=== PATIENT | female | born 1950 | race Caucasian/White ===

== ENCOUNTER 2018-11-23 16:31 | Emergency (ER) | payer OTHER ==
[2018-11-23 16:41] VITALS: BP 111/44; PULSE 70; TEMP 98.3; BMI 26.6
--- NOTE | 2018-11-23 16:42 | PDOC ---
Rapid Medical Evaluation Medical Evaluation: I have performed a brief in-person evaluation of this patient. The patient presents with a chief complaint of: Hx of venous stasis and RLE venous stasis ulcers x 2 weeks; also with ?urticaria BUE x 3 days; patient is on coumadin due to heart valve replacement; denies fever Pertinent physical exam findings: No rash noted on BUE, R heel is wrapped by patient's daughter I have ordered the following: Labs, xray The patient will proceed to the ED for further evaluation. 11/23/18 16:37
--- NOTE | 2018-11-23 17:28 | PDOC ---
History of Present Illness - General Chief Complaint: Wound Stated Complaint: ULCER ON RT LEG & RASH Time Seen by Provider: 11/23/18 16:37 Past History - Past Medical History Allergies/Adverse Reactions: Allergies Allergy/AdvReac Type Severity Reaction Status Date / Time No Known Allergies Allergy Verified 11/23/18 16:41 Home Medications: Ambulatory Orders hydrOXYzine HCL [Atarax -] 25 mg PO TID #21 tablet 11/23/18 Asthma: Yes Cardiac Disorders: (MECHANICAL VALVES) COPD: No Other medical history: VENOUS STASIS - Surgical History Cardiac Surgery: (VALAVE REPLACEMENTS) - Suicide/Smoking/Psychosocial Hx Smoking History: Never smoked Hx Alcohol Use: No Drug/Substance Use Hx: No *Physical Exam - Vital Signs Last Vital Signs Temp Pulse Resp BP Pulse Ox 98.3 F 70 14 111/44 L 99 11/23/18 16:37 11/23/18 16:37 11/23/18 16:37 11/23/18 16:37 11/23/18 16:37 ED Treatment Course - LABORATORY CBC & Chemistry Diagram: 11/23/18 17:09 11/23/18 17:09 Medical Decision Making - Medical Decision Making 11/23/18 17:27 HPI 68 year old woman with a history of mechanical mitral and aortic valve (on coumadin), HLD venous stasis of the legs, prior L leg venous stripping who presents with 7 days of ulceration on the R lateral ankle and 5 days of itching and redness on the bilateral arms and hands. The patient has a wound care appointment on Monday and has been using benadryl and aquaphor for the itching w / moderate relief. The daughter was concerned as the patient's itching was getting worse. The patient reports that in the past she had ulceration around the ankles that was also associated with arm itching and rash that resolved when the ulcer healed. PMHX: as in HPI PSHX: as in HPI Meds: coumadin, metoprolol, crestor, digoxin ROS GENERAL/CONSTITUTIONAL: No fever or chills. No weakness. HEAD, EYES, EARS, NOSE AND THROAT: No change in vision. No ear pain or discharge. No sore throat. CARDIOVASCULAR: No chest pain or shortness of breath RESPIRATORY: No cough, wheezing, or hemoptysis. GASTROINTESTINAL: No nausea, vomiting, diarrhea or constipation. GENITOURINARY: No dysuria, frequency, or change in urination. MUSCULOSKELETAL: No joint or muscle swelling or pain. No neck or back pain. SKIN: See HPI PE GENERAL: Awake, alert, and fully oriented, in no acute distress HEAD: No signs of trauma, normocephalic, atraumatic EYES: EOMI, sclera anicteric, conjunctiva clear ENT: oropharynx clear without exudates. Moist mucosa NECK: Normal ROM, supple LUNGS: No distress, speaks full sentences, clear to auscultation bilaterally HEART: Regular rate and rhythm, normal S1 and S2, + harsh holosystolic murmur, rubs or gallops, peripheral pulses normal and equal bilaterally. ABDOMEN: Soft, nontender, normoactive bowel sounds. No guarding, no rebound. No masses EXTREMITIES : + R lateral ankle with approx 5cm diameter stage 1 ulcer with 1cm stage 2 ulceration, wound weeping without purulence or erythema, palpable pulses NEUROLOGICAL: Cranial nerves II through XII grossly intact. Normal speech, normal gait, no focal sensorimotor deficits SKIN: Warm, Dry, normal turgor, no rashes or lesions noted GENITAL: uncircumcised male, vertical lie of testes, no inguinal lymphadenopathy , nontenderness to epididymal palpation, no erythema, lesions or ulcers MDM 68 year old woman with a history of mechanical mitral and aortic valve (on coumadin), HLD venous stasis of the legs, prior L leg venous stripping who presents with 7 days of ulceration on the R lateral ankle and 5 days of itching and redness on the bilateral arms and hands. DDX including but not limited to: r/o cellulitis vs osteomyelitis W/U: - cbc, cmp, XR R ankle TX: - atarax ED Course: R ankle XR: without obvious fracture or deformity labwork unremakable Patient stable for discharge. Informed of all lab and imaging results. Given follow up instructions and strict return precautions. Patient expressed understanding and agree to plan. Sharmila Busch, PGY2 Emergency Medicine *DC/Admit/Observation/Transfer Diagnosis at time of Disposition: Ulcer, Rash - Discharge Dispostion Disposition: HOME Condition at time of disposition: Fair Decision to Admit order: No - Prescriptions Prescriptions: hydrOXYzine HCL [Atarax -] 25 mg PO TID #21 tablet - Referrals Referrals: Duane,Gladys, MD [Primary Care Provider] - - Patient Instructions Printed Discharge Instructions: DI for Skin Lesion Removal Additional Instructions: You were seen in the ED for complaints of wound ulcer and itching rash on the arms. In the ED you were evaluated with labwork and imaging. Your results were unremarkable. There does not appear to be an acute need for immediate hospitalization. You are advised to follow up with your Primary Care Physician within 1 week. You were given a prescription for Atarax to be taken as prescribed. Return to the ED immediately if you experience worsening itching, worsening ulceration, pus drainage, redness, or fevers. - Post Discharge Activity
[2018-11-23 17:35] LABS: EOS % 6.3 % (0-4.5); HEMATOCRIT 35.8 % (32.4-45.2); HEMOGLOBIN 12.1 GM/dL (10.7-15.3); MCH 31.9 pg (25.7-33.7); MEAN PLT VOLUME 9.1 fl (7.5-11.1); MONO % 11.3 % (3.8-10.2); NEUT % 54.4 % (42.8-82.8); PLATELET COUNT 277 K/MM3 (134-434); RDW 13.1 % (11.6-15.6); WHITE BLOOD COUNT 6.2 K/mm3 (4.0-10.0)
[2018-11-23] MEDS ORDERED: diphenhydrAMINE HCL 25 MG CAPSULE (FP) PO ONE (17:58)
[2018-11-23 18:01] LABS: BLOOD UREA NITROGEN 18.6 mg/dL (7-18); POTASSIUM 5.3 mmol/L (3.5-5.1)
[2018-11-23] MEDS ORDERED: hydrOXYzine HCL 25 MG TABLET (FP) PO ONE (18:07)
--- NOTE | 2018-11-23 19:20 | PDOC ---
Documentation entered by Rimma Delgado SCRIBE, acting as scribe for Wallace York MD. Wallace York MD: This documentation has been prepared by the Sandy alaniz Adrianna, SCRIBE, under my direction and personally reviewed by me in its entirety. I confirm that the documentation accurately reflects all work, treatment, procedures, and medical decision making performed by me. Attending Attestation - Resident Resident Name: Sharmila Busch - HPI HPI: The patient is a 68 year old female, with a significant PMH of mechanical mitral and aortic valve, HLD venous stasis of bilateral lower extremities, and prior left lower extremity venous stripping, who presents to the ED for evaluation of ulceration of the right ankle for 7 days, and itching/erythema of bilateral upper extremities for 5 days. Patient presents with ulceration to the lateral aspect of the right ankle, which she notes has occurred in the past. She also reports associated redness and itching of bilateral arms and hands, which she confirms also developed previously when the ulcer presented. Patient has been using benadryl and aquaphor for her bilateral upper extremity itching, with moderate relief. She notes the itching and redness had resolved in the past once the ulcer healed. Patient reports having a wound care appointment in 3 days. Allergies: NKA, NKDA Surgical History: mechanical mitral and aortic valve replacements Social History: Denies EtOH, tobacco, or illicit drug use PCP: Dr. Zepeda - Physicial Exam PE: 11/23/18 19:18 supine in stretcher in nad rrr s1 s2 no mrg ctab soft nt nd multiple excoriation, urticarial rash noted on arms bilaterally worst overlying triceps/elbows no excoriations erythema or lesions noted on dorsum of hand or interdigital webbing 10cm x 10cm ulceration of skin noted on dorsum of the R ankle no purulent drainage, warmth or surrounding erythema noted - Medical Decision Making 11/23/18 19:19 Wound does not appear infected pt with wound care follow up rash of unclear etiology may represent allergic reaction atarax prn itching return precautions f/u pmd
== END 2018-11-23 19:54 | disposition home or self-care (01) ==
LOC: JER 16:31
DX: L97.311 Non-pressure chronic ulcer of right ankle limited to breakdown of skin (principal); L50.9 Urticaria, unspecified; E78.5 Hyperlipidemia, unspecified; Z95.4 Presence of other heart-valve replacement; Z79.01 Long term (current) use of anticoagulants
CPT/HCPCS: 36415; 73610-TC-RT-FY; 73630-TC-RT-FY; 80048; 85025; 99282-25

== ENCOUNTER 2019-01-02 09:11 | Inpatient (IN) | payer OTHER ==
[2019-01-02] MEDS: SODIUM CHLORIDE 1,000 ML IV SCH ×2 (10:07→23:46)
[2019-01-02 10:28] LABS: BASO % 0.5 % (0-2.0); EOS % 3.3 % (0-4.5); HEMATOCRIT 38.6 % (32.4-45.2); LYMPH % 7.4 % (8-40); MCH 31.6 pg (25.7-33.7); MCHC 33.6 g/dl (32.0-36.0); MEAN CELL VOLUME 94.1 fl (80-96); MEAN PLT VOLUME 8.6 fl (7.5-11.1); MONO % 6.7 % (3.8-10.2); NEUT % 82.1 % (42.8-82.8); PLATELET COUNT 362 K/MM3 (134-434); RBC 4.11 M/mm3 (3.60-5.2); RDW 14.1 % (11.6-15.6); WHITE BLOOD COUNT 6.4 K/mm3 (4.0-10.0)
[2019-01-02 10:48] LABS: PROTHROMBIN TIME (PATIENT) 54.9 SEC (9.7-13.0)
[2019-01-02 10:52] LABS: ALBUMIN 3.3 g/dl (3.4-5.0); ALK PHOS 152 U/L (45-117); AMYLASE 44 U/L (25-115); ANION GAP 6 MMOL/L (8-16); BILIRUBIN,TOTAL 0.9 mg/dL (0.2-1); BLOOD UREA NITROGEN 13.4 mg/dL (7-18); CALCIUM 9.3 mg/dL (8.5-10.1); CHLORIDE 105 mmol/L (98-107); CO2 26 mmol/L (21-32); CREATININE 0.8 mg/dL (0.55-1.3); GLUCOSE,RANDOM 89 mg/dL (74-106); LIPASE 107 U/L (73-393); POTASSIUM 4.3 mmol/L (3.5-5.1); SGOT/AST 37 U/L (15-37); SGPT/ALT 24 U/L (13-61); SODIUM 136 mmol/L (136-145); TOT PROT 8.1 g/dl (6.4-8.2)
--- NOTE | 2019-01-02 11:05 | EKG ---
Test Reason : Blood Pressure : / mmHG Vent. Rate : 090 BPM Atrial Rate : 100 BPM P-R Int : 000 ms QRS Dur : 076 ms QT Int : 324 ms P-R-T Axes : 000 046 054 degrees QTc Int : 396 ms ATRIAL FIBRILLATION ABNORMAL ECG NO PREVIOUS ECGS AVAILABLE Confirmed by ERNA JOHNSON MD ([id number]) on 01/02/2019 11:05:03 AM Referred By: Confirmed By:ERNA JOHNSON MD
[2019-01-02 11:19] LABS: INR 4.58 (0.83-1.09)
[2019-01-02] MEDS ORDERED: PIPERACILLIN/TAZOB 4.5 GM 4.5 GM in DEXTROSE 5%-WATER 100 ML IVPB ONE (11:24)
[2019-01-02] MEDS ORDERED: morphine CARPU-JECT 4 MG/1 ML DISP.SYRIN IVPUSH ONE (11:24)
[2019-01-02] MEDS ORDERED: morphine SULFATE 4 MG/ML VIAL ONE (11:50)
[2019-01-02] MEDS ORDERED: PIPERACILLIN/TAZOB 4.5 GM 4.5 GM/100 ML BAG IVPB ONE (11:50)
--- NOTE | 2019-01-02 12:09 | PDOC ---
Documentation entered by Michael Stokes SCRIBE, acting as scribe for Viridiana Medina MD. Viridiana Medina MD: This documentation has been prepared by the Kike alaniz Daniel, SCRIBE, under my direction and personally reviewed by me in its entirety. I confirm that the documentation accurately reflects all work, treatment, procedures, and medical decision making performed by me. History of Present Illness - General Chief Complaint: Vomiting/Diarrhea Stated Complaint: VOMITING,ABD PAIN,DIARRHEA History Source: Patient, Family Exam Limitations: No Limitations - History of Present Illness Initial Comments: 01/02/19 10:18 The patient is a 68 year old female with a past medical history of mechanical and mitral valve replacements (mechanical), HLD, chronic venous stasis of lower extremities (s/p left lower extremity venous stripping), and bilateral lower extremity ulcers (followed by wound care and ID) here today for evaluation of vomiting and diarrhea. History provided mostly by daughter. Daughter reports that the patient was recently prescribed levaquin (750 mg) and augmentin (850 mg ) for her lower extremity ulcers and took her first dose last night around 5 PM. Daughter states that soon after the patient became nauseous, vomited ( described as frothy, 4 episodes), had 4 episodes of diarrhea, palpitations, and developed strong burning epigastric pain. Daughter also notes that the patient was unsteady on her feet this morning and notes skin changes on her upper extremities since November. Patient denies headache, lightheadedness. Denies fever, chills. Denies chest pain, shortness of breath. Denies urinary symptoms. Denies travel, sick contacts , suspicious food intake. Allergies: NKA PCP: Kemal Mcgowan ID: Jose Barajas Past History - Past Medical History Allergies/Adverse Reactions: Allergies Allergy/AdvReac Type Severity Reaction Status Date / Time No Known Allergies Allergy Verified 01/02/19 09:26 Home Medications: Ambulatory Orders Digoxin [Lanoxin -] 0.25 mg PO DAILY 01/01/19 Metoprolol Succinate 25 mg PO DAILY 01/01/19 Rosuvastatin [Crestor -] 40 mg PO HS 01/01/19 Warfarin Na [Coumadin] 4 mg PO DAILY 01/01/19 Asthma: Yes Cardiac Disorders: Yes (MECHANICAL VALVES) COPD: No HTN: Yes Hypercholesterolemia: Yes - Surgical History Cardiac Surgery: (VALAVE REPLACEMENTS) - Suicide/Smoking/Psychosocial Hx Smoking History: Never smoked Information on smoking cessation initiated: No Hx Alcohol Use: No Drug/Substance Use Hx: No Review of Systems - Review of Systems Able to Perform ROS?: Yes Comments:: 01/02/19 10:24 GENERAL/CONSTITUTIONAL: No fever or chills. No weakness. HEAD, EYES, EARS, NOSE AND THROAT: No change in vision. No ear pain or discharge. No sore throat. CARDIOVASCULAR: No chest pain or shortness of breath. RESPIRATORY: No cough, wheezing, or hemoptysis. GASTROINTESTINAL: +nausea +vomiting +diarrhea +epigastric tenderness. No constipation. GENITOURINARY: No dysuria, frequency, or change in urination. MUSCULOSKELETAL: No joint or muscle swelling or pain. No neck or back pain. SKIN: No rash NEUROLOGIC: No headache, vertigo, loss of consciousness, or change in strength/ sensation. ENDOCRINE: No increased thirst. No abnormal weight change. HEMATOLOGIC/LYMPHATIC: No anemia, easy bleeding, or history of blood clots. ALLERGIC/IMMUNOLOGIC: No hives or skin allergy. *Physical Exam - Vital Signs Last Vital Signs Temp Pulse Resp BP Pulse Ox 99 F 94 H 18 125/82 99 01/02/19 09:23 01/02/19 09:23 01/02/19 09:23 01/02/19 09:23 01/02/19 09:23 - Physical Exam Comments: 01/02/19 10:25 GENERAL: The patient is in no acute distress. HEAD: Normal with no signs of trauma. EYES: PERRLA, EOMI, sclera anicteric, conjunctiva clear. ENT: Ears normal, nares patent, oropharynx clear without exudates. Moist mucous membranes. NECK: Normal range of motion, supple without lymphadenopathy, JVD, or masses. LUNGS: Breath sounds equal, clear to auscultation bilaterally. No wheezes, and no crackles. HEART: +irregularly irregular. Regular rate, normal S1 and S2 without murmur, rub or gallop. ABDOMEN: +minimal left upper quadrant tenderness. Soft, normoactive bowel sounds. No guarding, no rebound. No masses palpable. EXTREMITIES: +bilateral lower extremity edema with dressings applied. Normal range of motion. No clubbing or cyanosis. No erythema, or tenderness. NEUROLOGICAL: Cranial nerves II through XII grossly intact. Normal speech. No focal neurological deficits. MUSCULOSKELETAL: Back non-tender to palpation, no CVA tenderness SKIN: Warm, Dry, normal turgor, no rashes or lesions noted. ED Treatment Course - LABORATORY CBC & Chemistry Diagram: 01/02/19 10:00 01/02/19 10:00 Medical Decision Making - Medical Decision Making 01/02/19 10:13 68 yo F with chronic lower extremity ulcers, which have worsened over the past few weeks Pt presents with intractable vomiting and diarrhea since last night She began taking Augmentin and Levaquin last night No prior reaction to these medications No fevers or chills No recent travel No ill contacts EKG : Afib rate of 90 bpm, axis nml, intervals nml, no st elevation or depression, t waves upright 01/02/19 11:03 Laboratory Tests 01/02/19 01/02/19 01/02/19 10:00 10:00 10:00 WBC 6.4 Hgb 13.0 Hct 38.6 Plt Count 362 D PT with INR Sodium 136 Potassium 4.3 Chloride 105 Carbon Dioxide 26 BUN 13.4 Creatinine 0.8 Random Glucose 89 Total Amylase 44 Lipase 107 Digoxin 0.69 L 01/02/19 10:00 WBC Hgb Hct Plt Count PT with INR 54.90 H Sodium Potassium Chloride Carbon Dioxide BUN Creatinine Random Glucose Total Amylase Lipase Digoxin 01/02/19 11:[address] Barajas Requests Admission and Zosyn 01/02/19 12:35 Laboratory Tests 01/02/19 10:00 Creatine Kinase 91 Troponin I < 0.[address] Copeland 01/02/19 12:48 *DC/Admit/Observation/Transfer Diagnosis at time of Disposition: Vomiting and diarrhea Lower extremity ulceration Qualifiers: Laterality: unspecified laterality Non-pressure ulcer stage: limited to breakdown of skin Qualified Code(s): L97.901 - Non-pressure chronic ulcer of unspecified part of unspecified lower leg limited to breakdown of skin - Discharge Dispostion Condition at time of disposition: Stable Decision to Admit order: Yes - Referrals - Patient Instructions - Post Discharge Activity
--- NOTE | 2019-01-02 16:25 | HP ---
Admitting History and Physical - Primary Care Physician PCP: Waleska Copeland - Admission History of Present Illness: 68 year old female with a past medical history of mechanical and mitral valve replacements (mechanical), HLD, chronic venous stasis of lower extremities (s/p left lower extremity venous stripping), and bilateral lower extremity ulcers ( followed by wound care and ID) here today for evaluation of vomiting and diarrhea. History provided mostly by daughter. Daughter reports that the patient was recently prescribed levaquin (750 mg) and augmentin (850 mg) for her lower extremity ulcers and took her first dose last night around 5 PM. Daughter states that soon after the patient became nauseous, vomited (described as frothy, 4 episodes), had 4 episodes of diarrhea, palpitations, and developed strong burning epigastric pain. Daughter also notes that the patient was unsteady on her feet this morning and notes skin changes on her upper extremities since November. - Smoking History Smoking history: Never smoked - Alcohol/Substance Use Hx Alcohol Use: No Home Medications - Allergies Allergies/Adverse Reactions: Allergies Allergy/AdvReac Type Severity Reaction Status Date / Time No Known Allergies Allergy Verified 01/02/19 09:26 - Home Medications Home Medications: Ambulatory Orders Digoxin [Lanoxin -] 0.25 mg PO DAILY 01/01/19 Metoprolol Succinate 25 mg PO DAILY 01/01/19 Rosuvastatin [Crestor -] 40 mg PO HS 01/01/19 Warfarin Na [Coumadin] 4 mg PO DAILY 01/01/19 Physical Examination Vital Signs: Vital Signs Temperature 97.7 F 01/02/19 14:37 Pulse Rate 97 H 01/02/19 14:37 Respiratory Rate 18 01/02/19 14:37 Blood Pressure 132/71 01/02/19 14:37 O2 Sat by Pulse Oximetry (%) 99 01/02/19 14:48 Constitutional: Yes: No Distress HENT: Yes: Atraumatic Neck: Yes: Supple Cardiovascular: Yes: Regular Rate and Rhythm Respiratory: Yes: CTA Bilaterally Gastrointestinal: Yes: Normal Bowel Sounds Extremities: Yes: Other (b/l marcos wounds) Neurological: Yes: Alert, Oriented Labs: CBC, BMP 01/02/19 10:00 01/02/19 10:00 Problem List - Problems (1) Lower extremity ulceration Assessment/Plan: WOUND CARE IV ABX Code(s): L97.909 - NON-PRS CHRONIC ULC UNSP PRT OF UNSP LOW LEG W UNSP SEVERITY Qualifiers: Laterality: unspecified laterality Non-pressure ulcer stage: limited to breakdown of skin Qualified Code(s): L97.901 - Non-pressure chronic ulcer of unspecified part of unspecified lower leg limited to breakdown of skin (2) Vomiting and diarrhea Code(s): R11.10 - VOMITING, UNSPECIFIED; R19.7 - DIARRHEA, UNSPECIFIED Assessment/Plan Laboratory Tests 01/02/19 01/02/19 01/02/19 10:00 10:00 10:00 WBC 6.4 RBC 4.11 Hgb 13.0 Hct 38.6 MCV 94.1 MCH 31.6 MCHC 33.6 RDW 14.1 Plt Count 362 D MPV 8.6 Absolute Neuts (auto) 5.2 Neutrophils % 82.1 D Lymphocytes % 7.4 L D Monocytes % 6.7 Eosinophils % 3.3 Basophils % 0.5 Nucleated RBC % 0 PT with INR INR Sodium 136 Potassium 4.3 Chloride 105 Carbon Dioxide 26 Anion Gap 6 L BUN 13.4 Creatinine 0.8 Est GFR (CKD-EPI)AfAm 86.57 Est GFR (CKD-EPI)NonAf 74.70 Random Glucose 89 Calcium 9.3 Total Bilirubin 0.9 AST 37 ALT 24 Alkaline Phosphatase 152 H Creatine Kinase 91 Troponin I < 0.02 Total Protein 8.1 Albumin 3.3 L Total Amylase 44 Lipase 107 Digoxin 0.69 L 01/02/19 10:00 WBC RBC Hgb Hct MCV MCH MCHC RDW Plt Count MPV Absolute Neuts (auto) Neutrophils % Lymphocytes % Monocytes % Eosinophils % Basophils % Nucleated RBC % PT with INR 54.90 H INR 4.58 H* Sodium Potassium Chloride Carbon Dioxide Anion Gap BUN Creatinine Est GFR (CKD-EPI)AfAm Est GFR (CKD-EPI)NonAf Random Glucose Calcium Total Bilirubin AST ALT Alkaline Phosphatase Creatine Kinase Troponin I Total Protein Albumin Total Amylase Lipase Digoxin Active Medications Generic Name Dose Route Start Last Admin Trade Name Freq PRN Reason Stop Dose Admin Digoxin 0.25 mg 01/03/19 10:00 01/04/19 11:15 Lanoxin - PO 0.25 mg DAILY DIONICIO Administration Piperacillin Sod/Tazobactam 50 mls @ 100 mls/hr 01/03/19 12:00 01/04/19 11:14 Sod 3.375 gm/ Dextrose IVPB 100 mls/hr Q8H-IV DIONICIO Administration Protocol Sodium Chloride 1,000 mls @ 75 mls/hr 01/03/19 17:00 01/04/19 05:22 Normal Saline - IV 75 mls/hr ASDIR DIONICIO Administration Metoprolol Succinate 25 mg 01/03/19 10:00 01/04/19 11:14 Toprol Xl - PO 25 mg DAILY DIONICIO Administration Rosuvastatin Calcium 40 mg 01/03/19 23:21 Crestor - PO HS DIONICIO
[2019-01-02] MEDS ORDERED: HEPARIN NA (PORCINE) 5,000 UNITS/ML 1ML VIAL SQ SCH (22:00)
[2019-01-02] MEDS: ROSUVASTATIN CA 40 MG TABLET PO SCH (22:39)
[2019-01-03 08:22] LABS: BASO % 0.6 % (0-2.0); EOS % 8.3 % (0-4.5); HEMATOCRIT 34.5 % (32.4-45.2); HEMOGLOBIN 11.3 GM/dL (10.7-15.3); LYMPH % 28.5 % (8-40); MCH 31.3 pg (25.7-33.7); MCHC 32.8 g/dl (32.0-36.0); MEAN CELL VOLUME 95.4 fl (80-96); MEAN PLT VOLUME 8.7 fl (7.5-11.1); MONO % 14.1 % (3.8-10.2); NEUT % 48.5 % (42.8-82.8); PLATELET COUNT 318 K/MM3 (134-434); RBC 3.62 M/mm3 (3.60-5.2); RDW 14.4 % (11.6-15.6); WHITE BLOOD COUNT 4.4 K/mm3 (4.0-10.0)
[2019-01-03 08:25] LABS: ALBUMIN 2.7 g/dl (3.4-5.0); BILIRUBIN,TOTAL 0.4 mg/dL (0.2-1); BLOOD UREA NITROGEN 8.6 mg/dL (7-18); CREATININE 0.7 mg/dL (0.55-1.3); POTASSIUM 4.8 mmol/L (3.5-5.1); TOT PROT 6.5 g/dl (6.4-8.2)
[2019-01-03 09:24] LABS: PROTHROMBIN TIME (PATIENT) 48.8 SEC (9.7-13.0)
[2019-01-03] MEDS: SODIUM CHLORIDE 1,000 ML IV SCH ×2 (09:32→17:31)
[2019-01-03 09:36] LABS: INR 4.08 (0.83-1.09)
[2019-01-03] MEDS ORDERED: PT OWN MED DRAWER 7, Y5N ONE ×2 (10:47→21:23)
[2019-01-03] MEDS: metoPROLOL SUCCINATE 25 MG TAB.SR.24H (FP) PO SCH (10:48)
[2019-01-03] MEDS: DIGOXIN 0.25 MG TABLET (FP) PO SCH (10:49)
--- NOTE | 2019-01-03 12:18 | CON.ID ---
Consult - Alcohol/Substance Use Hx Alcohol Use: No - Smoking History Smoking history: Never smoked Home Medications - Allergies Allergies/Adverse Reactions: Allergies Allergy/AdvReac Type Severity Reaction Status Date / Time No Known Allergies Allergy Verified 01/02/19 09:26 - Home Medications Home Medications: Ambulatory Orders Digoxin [Lanoxin -] 0.25 mg PO DAILY 01/01/19 Metoprolol Succinate 25 mg PO DAILY 01/01/19 Rosuvastatin [Crestor -] 40 mg PO HS 01/01/19 Warfarin Na [Coumadin] 4 mg PO DAILY 01/01/19 Physical Exam Vital Signs: Vital Signs Temperature 98.4 F 01/03/19 09:08 Pulse Rate 106 H 01/03/19 10:49 Respiratory Rate 20 01/03/19 09:08 Blood Pressure 131/65 01/03/19 09:08 O2 Sat by Pulse Oximetry (%) 98 01/02/19 21:00 Labs: CBC, BMP 01/03/19 06:40 01/03/19 06:40
[2019-01-03] MEDS ORDERED: PIPERACILLIN/TAZOBACTAM 3.375 GM VIAL IVPB ONE ×2 (12:43→17:18)
[2019-01-03] MEDS ORDERED: DEXTROSE 5%-WATER - 50 ML IVPB ONE ×2 (12:43→17:19)
[2019-01-03] MEDS: PIPERACILLIN/TAZOB 3.375 GM 3.375 GM in DEXTROSE 5%-WATER - 50 ML IVPB SCH ×2 (12:52→17:29)
[2019-01-03 15:13] VITALS: BMI 25.0
--- NOTE | 2019-01-03 16:26 | PN ---
Progress Note, Physician - Current Medication List Current Medications: Active Medications Digoxin (Lanoxin -) 0.25 mg PO DAILY [facility] Last Admin: 01/03/19 10:49 Dose: 0.25 mg Sodium Chloride (Normal Saline -) 1,000 mls @ 150 mls/hr IV ASDIR DIONICIO Last Admin: 01/03/19 09:32 Dose: 150 mls/hr Piperacillin Sod/Tazobactam (Sod 3.375 gm/ Dextrose) 50 mls @ 100 mls/hr IVPB Q8H-IV DIONICIO; Protocol Last Admin: 01/03/19 12:52 Dose: 100 mls/hr Metoprolol Succinate (Toprol Xl -) 25 mg PO DAILY [facility] Last Admin: 01/03/19 10:48 Dose: 25 mg Rosuvastatin Calcium (Crestor -) 40 mg PO HS [facility] Last Admin: 01/02/19 22:39 Dose: 40 mg - Objective Vital Signs: Vital Signs Temperature 98.4 F 01/03/19 09:08 Pulse Rate 106 H 01/03/19 10:49 Respiratory Rate 20 01/03/19 09:08 Blood Pressure 131/65 01/03/19 09:08 O2 Sat by Pulse Oximetry (%) 98 01/02/19 21:00 Constitutional: Yes: No Distress HENT: Yes: Atraumatic Neck: Yes: Supple Cardiovascular: Yes: Regular Rate and Rhythm Respiratory: Yes: CTA Bilaterally Gastrointestinal: Yes: Normal Bowel Sounds Extremities: Yes: Other (B/L TOMMIE WOUNDS) Neurological: Yes: Alert, Oriented Labs: CBC, BMP 01/03/19 06:40 01/03/19 06:40 INR, PTT INR 4.08 (0.83-1.09) H* 01/03/19 06:40 Problem List - Problems (1) Lower extremity ulceration Assessment/Plan: WOUND CARE IV ABX Code(s): L97.909 - NON-PRS CHRONIC ULC UNSP PRT OF UNSP LOW LEG W UNSP SEVERITY Qualifiers: Laterality: unspecified laterality Non-pressure ulcer stage: limited to breakdown of skin Qualified Code(s): L97.901 - Non-pressure chronic ulcer of unspecified part of unspecified lower leg limited to breakdown of skin (2) Vomiting and diarrhea Code(s): R11.10 - VOMITING, UNSPECIFIED; R19.7 - DIARRHEA, UNSPECIFIED
[2019-01-03] MEDS: ROSUVASTATIN CA 40 MG TABLET PO SCH (21:28)
[2019-01-04] MEDS ORDERED: PIPERACILLIN/TAZOBACTAM 3.375 GM VIAL IVPB ONE ×3 (01:32→17:43)
[2019-01-04] MEDS ORDERED: DEXTROSE 5%-WATER - 50 ML IVPB ONE ×3 (01:33→17:43)
[2019-01-04] MEDS: PIPERACILLIN/TAZOB 3.375 GM 3.375 GM in DEXTROSE 5%-WATER - 50 ML IVPB SCH ×3 (02:19→18:23)
[2019-01-04] MEDS: SODIUM CHLORIDE 1,000 ML IV SCH ×2 (05:22→17:36)
[2019-01-04 08:25] LABS: INR 3.23 (0.83-1.09); PROTHROMBIN TIME (PATIENT) 38.6 SEC (9.7-13.0)
[2019-01-04] MEDS ORDERED: PT OWN MED DRAWER 7, Y5N ONE (10:53)
[2019-01-04] MEDS: metoPROLOL SUCCINATE 25 MG TAB.SR.24H (FP) PO SCH (11:14)
[2019-01-04] MEDS: DIGOXIN 0.25 MG TABLET (FP) PO SCH (11:15)
--- NOTE | 2019-01-04 12:45 | PN ---
Progress Note, Physician History of Present Illness: patient says she feels much better son in the room wound dressing done - Current Medication List Current Medications: Active Medications Digoxin (Lanoxin -) 0.25 mg PO DAILY [facility] Last Admin: 01/04/19 11:15 Dose: 0.25 mg Piperacillin Sod/Tazobactam (Sod 3.375 gm/ Dextrose) 50 mls @ 100 mls/hr IVPB Q8H-IV DIONICIO; Protocol Last Admin: 01/04/19 11:14 Dose: 100 mls/hr Sodium Chloride (Normal Saline -) 1,000 mls @ 75 mls/hr IV ASDIR [facility] Last Admin: 01/04/19 05:22 Dose: 75 mls/hr Metoprolol Succinate (Toprol Xl -) 25 mg PO DAILY [facility] Last Admin: 01/04/19 11:14 Dose: 25 mg Rosuvastatin Calcium (Crestor -) 40 mg PO [facility] - Objective Vital Signs: Vital Signs Temperature 97.9 F 01/04/19 06:00 Pulse Rate 98 H 01/04/19 11:15 Respiratory Rate 18 01/04/19 06:00 Blood Pressure 131/70 01/04/19 06:00 O2 Sat by Pulse Oximetry (%) 100 01/03/19 21:00 Constitutional: Yes: No Distress, Calm Cardiovascular: Yes: Regular Rate and Rhythm Respiratory: Yes: Regular, CTA Bilaterally Gastrointestinal: Yes: Normal Bowel Sounds, Soft Musculoskeletal: Yes: WNL Extremities: Yes: Other Wound/Incision: Yes: Dressing Dry and Intact Neurological: Yes: Alert, Oriented Psychiatric: Yes: Alert, Oriented Labs: CBC, BMP 01/03/19 06:40 01/03/19 06:40 INR, PTT INR 3.23 (0.83-1.09) H 01/04/19 07:10 Assessment/Plan Problem List - Problems (1) Lower extremity ulceration Code(s): L97.909 - NON-PRS CHRONIC ULC UNSP PRT OF UNSP LOW LEG W UNSP SEVERITY Qualifiers: Laterality: unspecified laterality Non-pressure ulcer stage: limited to breakdown of skin Qualified Code(s): L97.901 - Non-pressure chronic ulcer of unspecified part of unspecified lower leg limited to breakdown of skin (2) Vomiting and diarrhea Code(s): R11.10 - VOMITING, UNSPECIFIED; R19.7 - DIARRHEA, UNSPECIFIED plan continue abx wound care rest as per the team
--- NOTE | 2019-01-04 14:28 | PN ---
Progress Note, Physician - Current Medication List Current Medications: Active Medications Digoxin (Lanoxin -) 0.25 mg PO DAILY [facility] Last Admin: 01/04/19 11:15 Dose: 0.25 mg Piperacillin Sod/Tazobactam (Sod 3.375 gm/ Dextrose) 50 mls @ 100 mls/hr IVPB Q8H-IV [facility]; Protocol Last Admin: 01/04/19 11:14 Dose: 100 mls/hr Sodium Chloride (Normal Saline -) 1,000 mls @ 75 mls/hr IV ASDIR [facility] Last Admin: 01/04/19 05:22 Dose: 75 mls/hr Metoprolol Succinate (Toprol Xl -) 25 mg PO DAILY [facility] Last Admin: 01/04/19 11:14 Dose: 25 mg Rosuvastatin Calcium (Crestor -) 40 mg PO HS [facility] - Objective Vital Signs: Vital Signs Temperature 97.9 F 01/04/19 06:00 Pulse Rate 98 H 01/04/19 11:15 Respiratory Rate 18 01/04/19 06:00 Blood Pressure 131/70 01/04/19 06:00 O2 Sat by Pulse Oximetry (%) 100 01/03/19 21:00 HENT: Yes: Atraumatic Neck: Yes: Supple Cardiovascular: Yes: Regular Rate and Rhythm Respiratory: Yes: CTA Bilaterally Gastrointestinal: Yes: Normal Bowel Sounds Extremities: Yes: Other (b/l marcos wounds...dressing in place) Edema: No Neurological: Yes: Alert, Oriented Labs: CBC, BMP 01/03/19 06:40 01/03/19 06:40 INR, PTT INR 3.23 (0.83-1.09) H 01/04/19 07:10 Problem List - Problems (1) Lower extremity ulceration Assessment/Plan: WOUND CARE IV ABX Code(s): L97.909 - NON-PRS CHRONIC ULC UNSP PRT OF UNSP LOW LEG W UNSP SEVERITY Qualifiers: Laterality: unspecified laterality Non-pressure ulcer stage: limited to breakdown of skin Qualified Code(s): L97.901 - Non-pressure chronic ulcer of unspecified part of unspecified lower leg limited to breakdown of skin (2) Vomiting and diarrhea Code(s): R11.10 - VOMITING, UNSPECIFIED; R19.7 - DIARRHEA, UNSPECIFIED (3) Afib Assessment/Plan: on coumadin fu inr Code(s): I48.91 - UNSPECIFIED ATRIAL FIBRILLATION (4) Mechanical heart valve present Code(s): Z95.2 - PRESENCE OF PROSTHETIC HEART VALVE (5) DVT prophylaxis Code(s): Z29.9 - ENCOUNTER FOR PROPHYLACTIC MEASURES, UNSPECIFIED
--- NOTE | 2019-01-04 18:04 | CON.PSY ---
Psychiatry Consult Chief Complaint: 68 Year old female seen for Psych eval for Depression. apparantly has a sick at home which is stressful. Spoke to Grand daughter. Patient deniesd feeling Depressed, Grand Daughter reports she is ok. eating her Dinnern and smiles on approach and talkative. - Previous Psychiatric Treatment Outpatient: None Inpatient: None - Previous Substance Abuse Treatment Outpatient: None Inpatient: None - Current Medications Current Medications: Active Medications Digoxin (Lanoxin -) 0.25 mg PO DAILY [facility] Last Admin: 01/04/19 11:15 Dose: 0.25 mg Piperacillin Sod/Tazobactam (Sod 3.375 gm/ Dextrose) 50 mls @ 100 mls/hr IVPB Q8H-IV [facility], [facility]; Protocol Last Admin: 01/04/19 11:14 Dose: 100 mls/hr Sodium Chloride (Normal Saline -) 1,000 mls @ 75 mls/hr IV ASDIR [facility] Last Admin: 01/04/19 17:36 Dose: Not Given Metoprolol Succinate (Toprol Xl -) 25 mg PO DAILY [facility] Last Admin: 01/04/19 11:14 Dose: 25 mg Rosuvastatin Calcium (Crestor -) 40 mg PO [facility] - Allergies Allergies: Allergies Allergy/AdvReac Type Severity Reaction Status Date / Time No Known Allergies Allergy Verified 01/02/19 09:26 - Current Living Status Usual Living Arrangement: With Spouse - Current Mental Status Evaluation Appearance: Well Groomed Attitude: Cooperative - Affect Affect: Full Range Appropriateness: Appropriate to Content - Mood Mood: Euthymic - Speech/Language Expressive: Coherent - Psychomotor Activity Psychomotor Activity: Normal - Thought Process Thought Process: Intact - Thought Content Hallucinations: Absent Delusions: Absent - Self Perception Self Perception: No Impairment - Cognition Attention: Alert Orientation: Time Memory, Immediate Recall: Intact Memory, Short Term: 3/3 Memory, Remote with Promptin/3 - Concentration Serial Sevens Intact: Yes Simple Calculations Intact: Yes - Abstraction Proverb Interpretation: Intact Judgement: Intact - Insight Insight: Intact - Impulse Control Impulse Control: Good Control - Suicidal Ideation Suicidal Ideation: No - Homicidal Ideation Homicidal Ideation: No Assessment/Plan 1) No evidence of any clinical depression.
[2019-01-04] MEDS: ROSUVASTATIN CA 20 MG TABLET (FP) PO SCH (21:57)
[2019-01-05] MEDS ORDERED: PIPERACILLIN/TAZOBACTAM 3.375 GM VIAL IVPB ONE ×3 (01:22→17:12)
[2019-01-05] MEDS ORDERED: DEXTROSE 5%-WATER - 50 ML IVPB ONE ×3 (01:22→17:12)
[2019-01-05] MEDS: PIPERACILLIN/TAZOB 3.375 GM 3.375 GM in DEXTROSE 5%-WATER - 50 ML IVPB SCH ×3 (01:40→18:47)
[2019-01-05] MEDS ORDERED: PT OWN MED DRAWER 7, Y5N ONE (09:40)
[2019-01-05] MEDS: metoPROLOL SUCCINATE 25 MG TAB.SR.24H (FP) PO SCH (09:53)
[2019-01-05] MEDS: DIGOXIN 0.25 MG TABLET (FP) PO SCH (09:53)
[2019-01-05 10:20] LABS: INR 1.76 (0.83-1.09); PROTHROMBIN TIME (PATIENT) 20.9 SEC (9.7-13.0)
[2019-01-05 10:22] LABS: ACTIVATED PTT 39.7 SECONDS (25.2-36.5)
--- NOTE | 2019-01-05 13:02 | PN ---
Progress Note, Physician History of Present Illness: Pt is alert, afebrile, fully responsive. Son at bedside reports that she has been on and off disoriented. Her daughter states that she has been more withdrawn. No acute distress at this time. - Current Medication List Current Medications: Active Medications Digoxin (Lanoxin -) 0.25 mg PO DAILY [facility] Last Admin: 01/05/19 09:53 Dose: 0.25 mg Piperacillin Sod/Tazobactam (Sod 3.375 gm/ Dextrose) 50 mls @ 100 mls/hr IVPB Q8H-IV [facility]; Protocol Last Admin: 01/05/19 09:53 Dose: 100 mls/hr Metoprolol Succinate (Toprol Xl -) 25 mg PO DAILY [facility] Last Admin: 01/05/19 09:53 Dose: 25 mg Rosuvastatin Calcium (Crestor -) 40 mg PO HS [facility] Last Admin: 01/04/19 21:57 Dose: 40 mg Warfarin Sodium (Coumadin -) 4 mg PO DAILY@1800 [facility] - Objective Vital Signs: Vital Signs Temperature 98.6 F 01/05/19 09:58 Pulse Rate 82 01/05/19 09:58 Respiratory Rate 18 01/05/19 09:58 Blood Pressure 129/69 01/05/19 09:58 O2 Sat by Pulse Oximetry (%) 100 01/04/19 09:00 Constitutional: Yes: No Distress, Calm Cardiovascular: Yes: Pulse Irregular Respiratory: Yes: CTA Bilaterally Gastrointestinal: Yes: Normal Bowel Sounds, Soft Wound/Incision: Yes: Dressing Dry and Intact, Other (Rt LE without purulence, still with mild edema/mild tenderness) Neurological: Yes: Alert Labs: CBC, BMP 01/03/19 06:40 01/03/19 06:40 INR, PTT INR 1.76 (0.83-1.09) H 01/05/19 08:53 Problem List - Problems (1) Lower extremity ulceration Code(s): L97.909 - NON-PRS CHRONIC ULC UNSP PRT OF UNSP LOW LEG W UNSP SEVERITY Qualifiers: Laterality: unspecified laterality Non-pressure ulcer stage: limited to breakdown of skin Qualified Code(s): L97.901 - Non-pressure chronic ulcer of unspecified part of unspecified lower leg limited to breakdown of skin (2) Venous stasis Code(s): I87.8 - OTHER SPECIFIED DISORDERS OF VEINS Assessment/Plan Infected LE venous stasis ulcers LE cellulitis -- still with RLE> LLE edema but improving -- As per family pt has been intermittently disoriented, would like re- evaluation -- continue IV antibiotics for now (unable to tolerate previous oral antibiotics as outpt) Pt is no longer vomiting Remains afebrile Continue wound care/pain control
[2019-01-05] MEDS: ACETAMINOPHEN 325 MG TABLET (FP) PO PRN ×2 (14:57→21:49)
[2019-01-05] MEDS: WARFARIN NA 2 MG TABLET (UD) PO SCH (18:47)
[2019-01-05] MEDS: ROSUVASTATIN CA 20 MG TABLET (FP) PO SCH (21:50)
--- NOTE | 2019-01-05 23:07 | PN ---
Progress Note, Physician - Current Medication List Current Medications: Active Medications Acetaminophen (Tylenol -) 650 mg PO Q6H PRN PRN Reason: PAIN SCALE 6-10 Last Admin: 01/05/19 21:49 Dose: 650 mg Digoxin (Lanoxin -) 0.25 mg PO DAILY [facility] Last Admin: 01/05/19 09:53 Dose: 0.25 mg Piperacillin Sod/Tazobactam (Sod 3.375 gm/ Dextrose) 50 mls @ 100 mls/hr IVPB Q8H-IV [facility]; Protocol Last Admin: 01/05/19 18:47 Dose: 100 mls/hr Metoprolol Succinate (Toprol Xl -) 25 mg PO DAILY [facility] Last Admin: 01/05/19 09:53 Dose: 25 mg Rosuvastatin Calcium (Crestor -) 40 mg PO HS [facility] Last Admin: 01/05/19 21:50 Dose: 40 mg Warfarin Sodium (Coumadin -) 4 mg PO DAILY@1800 [facility] Last Admin: 01/05/19 18:47 Dose: 4 mg - Objective Vital Signs: Vital Signs Temperature 98.2 F 01/05/19 18:00 Pulse Rate 84 01/05/19 18:00 Respiratory Rate 20 01/05/19 18:00 Blood Pressure 126/70 01/05/19 18:00 O2 Sat by Pulse Oximetry (%) 100 01/04/19 09:00 Labs: CBC, BMP 01/03/19 06:40 01/03/19 06:40 INR, PTT INR 1.76 (0.83-1.09) H 01/05/19 08:53
[2019-01-06] MEDS ORDERED: PIPERACILLIN/TAZOBACTAM 3.375 GM VIAL IVPB ONE ×3 (01:18→18:42)
[2019-01-06] MEDS ORDERED: DEXTROSE 5%-WATER - 50 ML IVPB ONE ×3 (01:18→18:42)
[2019-01-06] MEDS: PIPERACILLIN/TAZOB 3.375 GM 3.375 GM in DEXTROSE 5%-WATER - 50 ML IVPB SCH ×3 (02:15→18:46)
[2019-01-06 08:14] LABS: BASO % 1.1 % (0-2.0); EOS % 6.9 % (0-4.5); HEMATOCRIT 38.3 % (32.4-45.2); HEMOGLOBIN 12.9 GM/dL (10.7-15.3); LYMPH % 34.4 % (8-40); MCH 31.6 pg (25.7-33.7); MCHC 33.6 g/dl (32.0-36.0); MEAN PLT VOLUME 8.5 fl (7.5-11.1); NEUT % 47.6 % (42.8-82.8); PLATELET COUNT 392 K/MM3 (134-434); RBC 4.08 M/mm3 (3.60-5.2); RDW 14.3 % (11.6-15.6); WHITE BLOOD COUNT 6.1 K/mm3 (4.0-10.0)
[2019-01-06 09:10] LABS: ALBUMIN 3.2 g/dl (3.4-5.0); BLOOD UREA NITROGEN 10.7 mg/dL (7-18); CALCIUM 9.6 mg/dL (8.5-10.1); CREATININE 0.8 mg/dL (0.55-1.3); POTASSIUM 4.4 mmol/L (3.5-5.1); TOT PROT 7.9 g/dl (6.4-8.2)
[2019-01-06 09:20] LABS: INR 1.4 (0.83-1.09); PROTHROMBIN TIME (PATIENT) 16.6 SEC (9.7-13.0)
[2019-01-06] MEDS ORDERED: PT OWN MED DRAWER 7, Y5N ONE (10:58)
[2019-01-06] MEDS: DIGOXIN 0.25 MG TABLET (FP) PO SCH (11:10)
[2019-01-06] MEDS: metoPROLOL SUCCINATE 25 MG TAB.SR.24H (FP) PO SCH (11:10)
[2019-01-06] MEDS: WARFARIN NA 2 MG TABLET (UD) PO SCH (18:46)
--- NOTE | 2019-01-06 19:06 | PN ---
Progress Note, Physician History of Present Illness: Pt much more alert and responsive today. States she feels better, less pain. Niece at bedside translated. Has no new complaints. - Current Medication List Current Medications: Active Medications Acetaminophen (Tylenol -) 650 mg PO Q6H PRN PRN Reason: PAIN SCALE 6-10 Last Admin: 01/05/19 21:49 Dose: 650 mg Digoxin (Lanoxin -) 0.25 mg PO DAILY [facility] Last Admin: 01/06/19 11:10 Dose: 0.25 mg Piperacillin Sod/Tazobactam (Sod 3.375 gm/ Dextrose) 50 mls @ 100 mls/hr IVPB Q8H-IV [facility]; Protocol Last Admin: 01/06/19 18:46 Dose: 100 mls/hr Metoprolol Succinate (Toprol Xl -) 25 mg PO DAILY [facility] Last Admin: 01/06/19 11:10 Dose: 25 mg Rosuvastatin Calcium (Crestor -) 40 mg PO HS [facility] Last Admin: 01/05/19 21:50 Dose: 40 mg Warfarin Sodium (Coumadin -) 4 mg PO DAILY@1800 [facility] Last Admin: 01/06/19 18:46 Dose: 4 mg - Objective Vital Signs: Vital Signs Temperature 98.2 F 01/06/19 18:00 Pulse Rate 96 H 01/06/19 18:00 Respiratory Rate 20 01/06/19 18:00 Blood Pressure 125/86 01/06/19 18:00 O2 Sat by Pulse Oximetry (%) 96 01/06/19 09:00 Constitutional: Yes: No Distress, Calm Eyes: Yes: Conjunctiva Clear Cardiovascular: Yes: Regular Rate and Rhythm Respiratory: Yes: Regular Gastrointestinal: Yes: Normal Bowel Sounds, Soft Genitourinary: Yes: WNL Extremities: Yes: Erythema (RLE less edema/tenderness, dressing intact) Neurological: Yes: Alert Labs: CBC, BMP 01/06/19 07:50 01/06/19 07:50 INR, PTT INR 1.40 (0.83-1.09) H 01/06/19 07:50 Problem List - Problems (1) Lower extremity ulceration Code(s): L97.909 - NON-PRS CHRONIC ULC UNSP PRT OF UNSP LOW LEG W UNSP SEVERITY Qualifiers: Laterality: unspecified laterality Non-pressure ulcer stage: limited to breakdown of skin Qualified Code(s): L97.901 - Non-pressure chronic ulcer of unspecified part of unspecified lower leg limited to breakdown of skin (2) Venous stasis Code(s): I87.8 - OTHER SPECIFIED DISORDERS OF VEINS Assessment/Plan Infected LE venous stasis ulcers LE cellulitis -- RLE> LLE edema improving -- continue IV antibiotics for now -- continue wound care, pain is controlled Remains afebrile d/w niece at bedside
[2019-01-06] MEDS: ROSUVASTATIN CA 20 MG TABLET (FP) PO SCH (21:35)
--- NOTE | 2019-01-06 23:20 | PN ---
Progress Note, Physician - Current Medication List Current Medications: Active Medications Acetaminophen (Tylenol -) 650 mg PO Q6H PRN PRN Reason: PAIN SCALE 6-10 Last Admin: 01/05/19 21:49 Dose: 650 mg Digoxin (Lanoxin -) 0.25 mg PO DAILY [facility] Last Admin: 01/06/19 11:10 Dose: 0.25 mg Piperacillin Sod/Tazobactam (Sod 3.375 gm/ Dextrose) 50 mls @ 100 mls/hr IVPB Q8H-IV [facility]; Protocol Last Admin: 01/06/19 18:46 Dose: 100 mls/hr Metoprolol Succinate (Toprol Xl -) 25 mg PO DAILY [facility] Last Admin: 01/06/19 11:10 Dose: 25 mg Rosuvastatin Calcium (Crestor -) 40 mg PO HS [facility] Last Admin: 01/06/19 21:35 Dose: 40 mg Warfarin Sodium (Coumadin -) 4 mg PO DAILY@1800 [facility] Last Admin: 01/06/19 18:46 Dose: 4 mg - Objective Vital Signs: Vital Signs Temperature 98.2 F 01/06/19 18:00 Pulse Rate 96 H 01/06/19 18:00 Respiratory Rate 20 01/06/19 18:00 Blood Pressure 125/86 01/06/19 18:00 O2 Sat by Pulse Oximetry (%) 96 01/06/19 09:00 Labs: CBC, BMP 01/06/19 07:50 01/06/19 07:50 INR, PTT INR 1.40 (0.83-1.09) H 01/06/19 07:50
[2019-01-07] MEDS ORDERED: DEXTROSE 5%-WATER - 50 ML IVPB ONE ×3 (01:35→17:41)
[2019-01-07] MEDS ORDERED: PIPERACILLIN/TAZOBACTAM 3.375 GM VIAL IVPB ONE ×3 (01:35→17:41)
[2019-01-07] MEDS: PIPERACILLIN/TAZOB 3.375 GM 3.375 GM in DEXTROSE 5%-WATER - 50 ML IVPB SCH ×3 (01:48→18:07)
[2019-01-07 07:29] LABS: INR 1.44 (0.83-1.09)
[2019-01-07] MEDS ORDERED: WARFARIN NA 2 MG TABLET (UD) PO SCH (10:24)
[2019-01-07] MEDS ORDERED: HEPARIN NA (PORCINE) 5,000 UNITS/ML 1ML VIAL SQ SCH (10:30)
[2019-01-07] MEDS ORDERED: PT OWN MED DRAWER 7, Y5N ONE (10:57)
[2019-01-07] MEDS: DIGOXIN 0.25 MG TABLET (FP) PO SCH (11:00)
[2019-01-07] MEDS: metoPROLOL SUCCINATE 25 MG TAB.SR.24H (FP) PO SCH (11:00)
--- NOTE | 2019-01-07 12:35 | PN ---
Progress Note, Physician History of Present Illness: stable doing well improving - Current Medication List Current Medications: Active Medications Acetaminophen (Tylenol -) 650 mg PO Q6H PRN PRN Reason: PAIN SCALE 6-10 Last Admin: 01/05/19 21:49 Dose: 650 mg Digoxin (Lanoxin -) 0.25 mg PO DAILY [facility] Last Admin: 01/07/19 11:00 Dose: 0.25 mg Heparin Sodium (Porcine) (Heparin -) 5,000 unit SQ BID [facility] Last Admin: 01/07/19 11:00 Dose: 5,000 unit Piperacillin Sod/Tazobactam (Sod 3.375 gm/ Dextrose) 50 mls @ 100 mls/hr IVPB Q8H-IV [facility]; Protocol Last Admin: 01/07/19 11:02 Dose: 100 mls/hr Metoprolol Succinate (Toprol Xl -) 25 mg PO DAILY [facility] Last Admin: 01/07/19 11:00 Dose: 25 mg Rosuvastatin Calcium (Crestor -) 40 mg PO HS [facility] Last Admin: 01/06/19 21:35 Dose: 40 mg Warfarin Sodium 5 mg/ Warfarin (Sodium 3 mg) 8 mg PO DAILY@1800 [facility] - Objective Vital Signs: Vital Signs Temperature 97.9 F 01/07/19 06:00 Pulse Rate 89 01/07/19 11:00 Respiratory Rate 20 01/07/19 06:00 Blood Pressure 124/76 01/07/19 06:00 O2 Sat by Pulse Oximetry (%) 96 01/06/19 09:00 Constitutional: Yes: No Distress, Calm Cardiovascular: Yes: S1, S2 Respiratory: Yes: Regular, CTA Bilaterally Gastrointestinal: Yes: Normal Bowel Sounds, Soft Musculoskeletal: Yes: WNL Extremities: Yes: Other Neurological: Yes: Alert, Oriented Psychiatric: Yes: Alert, Oriented Labs: CBC, BMP 01/06/19 07:50 01/06/19 07:50 INR, PTT INR 1.44 (0.83-1.09) H 01/07/19 06:45 Assessment/Plan Problem List - Problems (1) Lower extremity ulceration Code(s): L97.909 - NON-PRS CHRONIC ULC UNSP PRT OF UNSP LOW LEG W UNSP SEVERITY Qualifiers: Laterality: unspecified laterality Non-pressure ulcer stage: limited to breakdown of skin Qualified Code(s): L97.901 - Non-pressure chronic ulcer of unspecified part of unspecified lower leg limited to breakdown of skin (2) Vomiting and diarrhea Code(s): R11.10 - VOMITING, UNSPECIFIED; R19.7 - DIARRHEA, UNSPECIFIED plan continue abx wound care rest as per the team
--- NOTE | 2019-01-07 16:31 | CONSULT ---
- Consultation REQUESTING PROVIDER: CONSULT REQUEST: We have been asked to surgically evaluate this patient for venous stasis ulcers. PCP:Waleska Copeland HISTORY OF PRESENT ILLNESS: 68 y/o F w/ PMHx mechanical and mitral valve replacements, HLD, chronic venous stasis of lower extremities (s/p left lower extremity venous stripping), and bilateral lower extremity ulcers (followed by wound care and ID) a/w vomiting and diarrhea. History provided mostly by daughter. Vascular consulted for evaluation. Pt reports she has had LLE ulcers for months, has been followed in wound care. Per EMR, pts daughter reports that patient was recently prescribed levaquin (750 mg) and augmentin (850 mg) for her lower extremity ulcers and took her first dose the evening before admission. Pt experienced nausea and vomiting and was brought in by her daughter for further evaluation. Pt reports she walks with walker at home due to unsteadiness. Denies h/o circulatory issues , vascular interventions for PAD. PMHx: as above PSHx: as above Home Medications Medication Instructions Recorded Digoxin [Lanoxin -] 0.25 mg PO DAILY 01/01/19 Metoprolol Succinate 25 mg PO DAILY 01/01/19 Rosuvastatin [Crestor -] 40 mg PO HS 01/01/19 Warfarin Na [Coumadin] 4 mg PO DAILY 01/01/19 Allergies Allergy/AdvReac Type Severity Reaction Status Date / Time No Known Allergies Allergy Verified 01/02/19 09:26 REVIEW OF SYSTEMS: CONSTITUTIONAL: Absent: fever, chills CARDIOVASCULAR: Absent: chest pain, syncope RESPIRATORY: Absent: cough, shortness of breath PHYSICAL EXAM: GENERAL: Awake, alert, and fully oriented, in no acute distress. HEAD: Normal with no signs of trauma. LOWER EXTREMITIES: RLE with circumferential scaling of skin noted. No open ulcers. +Hyperpigmentation, + hyperkeratosis. No erythema. Trace edema. LLE with approx 1.5x1cm ulcer at medial malleolus, clean based, no erythema, scant serous drainage. LLE wit trace edema. Minimal hyperkeratosis. Vasc: 2+ b/l dp, pts not appreciated secondary to skin changes. Vital Signs Temperature 98.2 F 01/07/19 14:00 Pulse Rate 81 01/07/19 14:00 Respiratory Rate 20 01/07/19 14:00 Blood Pressure 126/57 L 01/07/19 14:00 O2 Sat by Pulse Oximetry (%) 96 01/06/19 09:00 Lab Results WBC 6.1 K/mm3 (4.0-10.0) 01/06/19 07:50 RBC 4.08 M/mm3 (3.60-5.2) 01/06/19 07:50 Hgb 12.9 GM/dL (10.7-15.3) 01/06/19 07:50 Hct 38.3 % (32.4-45.2) 01/06/19 07:50 MCV 94.0 fl (80-96) 01/06/19 07:50 MCHC 33.6 g/dl (32.0-36.0) 01/06/19 07:50 RDW 14.3 % (11.6-15.6) 01/06/19 07:50 Plt Count 392 K/MM3 (134-434) D 01/06/19 07:50 Sodium 140 mmol/L (136-145) 01/06/19 07:50 Potassium 4.4 mmol/L (3.5-5.1) 01/06/19 07:50 Chloride 105 mmol/L (98-107) 01/06/19 07:50 Carbon Dioxide 29 mmol/L (21-32) 01/06/19 07:50 Anion Gap 6 MMOL/L (8-16) L 01/06/19 07:50 BUN 10.7 mg/dL (7-18) 01/06/19 07:50 Creatinine 0.8 mg/dL (0.55-1.3) 01/06/19 07:50 Random Glucose 91 mg/dL (74-106) 01/06/19 07:50 Calcium 9.6 mg/dL (8.5-10.1) 01/06/19 07:50 INR 1.44 (0.83-1.09) H 01/07/19 06:45 A/P: 68 y/o F w/ PMHx mechanical and mitral valve replacements, HLD, chronic venous stasis of lower extremities (s/p left lower extremity venous stripping), and bilateral lower extremity ulcers (followed by wound care and ID) a/w vomiting and diarrhea. Noninfected venous stasis ulcer. +hyperkeratosis -Recommend [place] soaks daily to RLE, cover with xerform and kerlix -Aquacel to LLE with kerlix -Elevate b/l les while at rest -Abx per ID -F/u with Dr Serna upon discharge d/w attending Dr Serna
--- NOTE | 2019-01-07 16:35 | PN ---
Progress Note, Physician - Current Medication List Current Medications: Active Medications Acetaminophen (Tylenol -) 650 mg PO Q6H PRN PRN Reason: PAIN SCALE 6-10 Last Admin: 01/05/19 21:49 Dose: 650 mg Digoxin (Lanoxin -) 0.25 mg PO DAILY [facility] Last Admin: 01/07/19 11:00 Dose: 0.25 mg Heparin Sodium (Porcine) (Heparin -) 5,000 unit SQ BID [facility] Last Admin: 01/07/19 11:00 Dose: 5,000 unit Piperacillin Sod/Tazobactam (Sod 3.375 gm/ Dextrose) 50 mls @ 100 mls/hr IVPB Q8H-IV [facility]; Protocol Last Admin: 01/07/19 11:02 Dose: 100 mls/hr Metoprolol Succinate (Toprol Xl -) 25 mg PO DAILY [facility] Last Admin: 01/07/19 11:00 Dose: 25 mg Rosuvastatin Calcium (Crestor -) 40 mg PO HS [facility] Last Admin: 01/06/19 21:35 Dose: 40 mg Warfarin Sodium 5 mg/ Warfarin (Sodium 3 mg) 8 mg PO DAILY@1800 [facility] - Objective Vital Signs: Vital Signs Temperature 98.2 F 01/07/19 14:00 Pulse Rate 81 01/07/19 14:00 Respiratory Rate 20 01/07/19 14:00 Blood Pressure 126/57 L 01/07/19 14:00 O2 Sat by Pulse Oximetry (%) 96 01/06/19 09:00 Constitutional: Yes: No Distress HENT: Yes: Atraumatic Neck: Yes: Supple Cardiovascular: Yes: Regular Rate and Rhythm Respiratory: Yes: CTA Bilaterally Gastrointestinal: Yes: Normal Bowel Sounds Extremities: Yes: Other (b/l marcos) Neurological: Yes: Alert, Oriented Labs: CBC, BMP 01/06/19 07:50 01/06/19 07:50 INR, PTT INR 1.44 (0.83-1.09) H 01/07/19 06:45 Problem List - Problems (1) Lower extremity ulceration Assessment/Plan: WOUND CARE IV ABX Code(s): L97.909 - NON-PRS CHRONIC ULC UNSP PRT OF UNSP LOW LEG W UNSP SEVERITY Qualifiers: Laterality: unspecified laterality Non-pressure ulcer stage: limited to breakdown of skin Qualified Code(s): L97.901 - Non-pressure chronic ulcer of unspecified part of unspecified lower leg limited to breakdown of skin (2) Vomiting and diarrhea Code(s): R11.10 - VOMITING, UNSPECIFIED; R19.7 - DIARRHEA, UNSPECIFIED (3) Afib Assessment/Plan: on coumadin started her on iv heparin spoke to dr yany matute , pts patient accounting representative...inr to be kept 2.5-3.5 d/w with daughter cardio will see her tomorrow Code(s): I48.91 - UNSPECIFIED ATRIAL FIBRILLATION (4) Mechanical heart valve present Code(s): Z95.2 - PRESENCE OF PROSTHETIC HEART VALVE Assessment/Plan DR YANY MATUTE [phone]
[2019-01-07] MEDS ORDERED: WARFARIN NA 3 MG TABLET ONE (17:41)
[2019-01-07] MEDS ORDERED: WARFARIN NA 5 MG TABLET (UD) ONE (17:41)
[2019-01-07] MEDS ORDERED: WARFARIN NA 5 MG, WARFARIN NA 3 MG PO SCH (18:00)
[2019-01-07] MEDS ORDERED: HEPARIN NA (PORCINE) 5,000 UNITS/ML 1ML VIAL IVPUSH PRN ×2 (18:57)
[2019-01-07] MEDS ORDERED: HEPARIN SOD,PORK IN 0.45% NACL 25,000 UNIT/500 ML INFUS.BAG IVPB SCH (19:00)
[2019-01-07] MEDS: ACETAMINOPHEN 325 MG TABLET (FP) PO PRN (20:01)
[2019-01-07] MEDS: ROSUVASTATIN CA 20 MG TABLET (FP) PO SCH (21:59)
[2019-01-08] MEDS ORDERED: PIPERACILLIN/TAZOBACTAM 3.375 GM VIAL IVPB ONE ×3 (01:15→17:15)
[2019-01-08] MEDS ORDERED: DEXTROSE 5%-WATER - 50 ML IVPB ONE ×3 (01:15→17:15)
[2019-01-08] MEDS: PIPERACILLIN/TAZOB 3.375 GM 3.375 GM in DEXTROSE 5%-WATER - 50 ML IVPB SCH ×3 (01:59→17:30)
[2019-01-08 07:58] LABS: INR 1.97 (0.83-1.09); PROTHROMBIN TIME (PATIENT) 23.4 SEC (9.7-13.0)
[2019-01-08] MEDS ORDERED: PT OWN MED DRAWER 7, Y5N ONE (09:55)
[2019-01-08] MEDS: metoPROLOL SUCCINATE 25 MG TAB.SR.24H (FP) PO SCH (10:05)
[2019-01-08] MEDS: DIGOXIN 0.25 MG TABLET (FP) PO SCH (10:05)
--- NOTE | 2019-01-08 11:10 | CON.CARD ---
Consult Consult Specialty:: cardiology Referred by:: Dr. Copeland Reason for Consultation:: INR - History of Present Illness Chief Complaint: admitted with le ulcers History of Present Illness: 68 year old woman with a PMH of mechanical AVR/MVR, HLD, chronic venous stasis of lower extremities (s/p left lower extremity venous stripping), and bilateral lower extremity ulcers (followed by wound care and ID) a/w LE ulcers, vomiting and diarrhea. As outpatient pt was recently prescribed levaquin (750 mg) and augmentin (850 mg) for her lower extremity ulcers and took her first dose the evening before admission. Pt experienced nausea and vomiting and was brought in by her daughter for further evaluation. on admission her INR was 4.58 and her warfarin was held. she has been on 4mg daily at home prior to admission. her daughter is with her today and states she is doing better but has been mildly confused since coming to the hospital. - History Source History Provided By: Patient, Family Member Limitations to Obtaining History: Language Barrier - Past Medical History Cardio/Vascular: Yes: HTN, Murmur, Other (mechanical avr/mvr) - Alcohol/Substance Use Hx Alcohol Use: No - Smoking History Smoking history: Never smoked - Social History Usual Living Arrangement: With Spouse Home Medications - Allergies Allergies/Adverse Reactions: Allergies Allergy/AdvReac Type Severity Reaction Status Date / Time No Known Allergies Allergy Verified 01/02/19 09:26 - Home Medications Home Medications: Ambulatory Orders Digoxin [Lanoxin -] 0.25 mg PO DAILY 01/01/19 Metoprolol Succinate 25 mg PO DAILY 01/01/19 Rosuvastatin [Crestor -] 40 mg PO HS 01/01/19 Warfarin Na [Coumadin] 4 mg PO DAILY 01/01/19 Family Disease History - Family Disease History Family History: Denies Review of Systems - Review of Systems Constitutional: denies: No Symptoms, Chills, Diaphoresis, Fever, Lethargy, Loss of Appetite, Malaise, Night Sweats, Unintentional Wgt. Loss, Weakness, Other Eyes: denies: No Symptoms, Blind Spots, Blurred Vision, Double Vision, Eye Pain , Floaters, Photophobia, Recent Change in Vision, Other HENT: denies: No Symptoms, Difficult Swallowing, Ear Discharge, Ear Pain, Epistaxis, Gingival Bleeding, Hearing Loss, Mouth Swelling, Nasal Congestion, Ocular Prosthesis, Throat Pain, Toothache, Ringing in Ears, Other Neck: denies: No Symptoms, Decreased ROM, Lumps, Pain on Movement, Stiffness, Swollen Glands, Tenderness, Other Cardiovascular: denies: No Symptoms, Chest Pain, Edema, Palpitations, Shortness of Breath, Other Respiratory: denies: No Symptoms, Cough, Exercise Intolerance, Hemoptysis, Orthopnea, PND, Snoring, SOB, SOB on Exertion, Wheezing, Other Gastrointestinal: denies: No Symptoms, Abdominal Pain, Bloating, Constipation, Diarrhea, Dysphagia, Indigestion, Melena, Nausea, Rectal Bleeding, Vomiting, Vomiting Blood, Other Genitourinary: denies: No Symptoms, Burning, Discharge, Dysuria, Flank Pain, Frequency, Hematuria, Incontinence, Lesions, Menses, Pain, Testicular Mass, Testicular Pain, Testicular Swelling, Urgency, Vaginal Bleeding, Other Breasts: denies: No Symptoms Reported, See HPI, Breast Implants, Discharge from Nipple, Lumps, Pain, Skin Changes, Other Musculoskeletal: denies: No Symptoms, Back Pain, Crepitus, Decreased ROM, Extremity Pain, Joint Pain, Joint Swelling, Muscle Pain, Muscle Cramps, Muscle Weakness, Other Integumentary: denies: No Symptoms, Blister, Bruising, Change in Color, Eczema, Erythema, Incision, Lesions, Lump, Pallor, Pruritis, Rash, Wound, Other Neurological: denies: No Symptoms, Change in LOC, Change in Speech, Confusion, Dizziness, Headache, Incoordination, Numbness, Parasthesia, Pre-Existing Deficit , Seizure, Syncope, Tremors, Unsteady Gait, Weakness, Other Endocrine: denies: No Symptoms, Excessive Sweating, Flushing, Increased Hunger, Increased Thirst, Intolerance to Cold, Intolerance to Heat, Unexplained Weight Gain, Unexplained Weight Loss, Other Hematology/Lymphatic: denies: No Symptoms, Easily Bruised, Excessive Bleeding, Swollen Glands, Other Psychiatric: denies: No Symptoms, Altered Sleep Pattern, Anxiety, Depression, Hallucinations, Panic, Paranoia, Suicidal, Other Vital Signs: Vital Signs Temperature 97.9 F 01/08/19 10:00 Pulse Rate 81 01/08/19 10:05 Respiratory Rate 18 01/08/19 10:00 Blood Pressure 105/87 01/08/19 10:00 O2 Sat by Pulse Oximetry (%) 96 01/06/19 09:00 Constitutional: Yes: No Distress, Calm Eyes: Yes: Conjunctiva Clear, EOM Intact HENT: Yes: Atraumatic, Normocephalic Neck: Yes: Supple, Trachea Midline Respiratory: Yes: Regular, CTA Bilaterally Gastrointestinal: Yes: Normal Bowel Sounds, Soft Cardiovascular: Yes: Regular Rate and Rhythm, Other (mechanical avr/mvr heard). No: Bradycardia, Tachycardia, Pulse Irregular, Gallop, Rub, Varicosities JVD: No Carotid Bruit: No PMI: Non-Displaced Heart Sounds: Yes: S1, S2 Murmur: No: Systolic Murmur, Diastolic Murmur Musculoskeletal: Yes: WNL Extremities: Yes: WNL Edema: Yes Neurological: Yes: Alert Psychiatric: Yes: Alert - Other Data Labs, Other Data: CBC, BMP 01/06/19 07:50 01/06/19 07:50 INR, PTT INR 1.97 (0.83-1.09) H 01/08/19 06:40 afib 90bpm Imaging - Results Chest X-ray: Report Reviewed, Image Reviewed EKG: Report Reviewed, Image Reviewed Other: Report Reviewed, Image Reviewed Assessment/Plan 68 year old woman with a PMH of mechanical AVR/MVR, HLD, chronic venous stasis of lower extremities (s/p left lower extremity venous stripping), and bilateral lower extremity ulcers (followed by wound care and ID) a/w LE ulcers, vomiting and diarrhea. As outpatient pt was recently prescribed levaquin (750 mg) and augmentin (850 mg) for her lower extremity ulcers and took her first dose the evening before admission. Pt experienced nausea and vomiting and was brought in by her daughter for further evaluation. on admission her INR was 4.58 and her warfarin was held. she has been on 4mg daily at home prior to admission. her daughter is with her today and states she is doing better but has been mildly confused since coming to the hospital. Mechanical AVR/MVR/afib -on warfarin 4mg daily at home for goal INR 2.5-3.5 -supratherapeutic INR on admission and warfarin was held -inr then subtherapeutic and now on heparin gtt bridge with warfarin -received 1st dose of warfarn 01/07 of 8mg and is scheduled for 6mg today -ok to give 6mg tonight and fup repeat INR tomorrow -plan to likely resume 4mg daily starting tomorrow night but will depend on INR results -given her mechanical valves recc continued IV heparin gtt bridging until INR is therapeutic -INR will likely be effected by Abx and will need to be monitored closely. -cont digoxin and metoprolol for afib
--- NOTE | 2019-01-08 13:09 | PN ---
Progress Note, Physician History of Present Illness: stable doing well no issues - Current Medication List Current Medications: Active Medications Acetaminophen (Tylenol -) 650 mg PO Q6H PRN PRN Reason: PAIN SCALE 6-10 Last Admin: 01/07/19 20:01 Dose: 650 mg Digoxin (Lanoxin -) 0.25 mg PO DAILY [facility] Last Admin: 01/08/19 10:05 Dose: 0.25 mg Piperacillin Sod/Tazobactam (Sod 3.375 gm/ Dextrose) 50 mls @ 100 mls/hr IVPB Q8H-IV [facility]; Protocol Last Admin: 01/08/19 10:06 Dose: 100 mls/hr HEPARIN SOD,PORK IN 0.45% NACL (Heparin-1/2ns 25,000 Units/500) 25,000 unit in 500 mls @ 16 mls/hr IVPB TITR [facility]; Protocol Last Titration: 01/08/19 05:56 Dose: 650 units/hr, 13 mls/hr Metoprolol Succinate (Toprol Xl -) 25 mg PO DAILY [facility] Last Admin: 01/08/19 10:05 Dose: 25 mg Rosuvastatin Calcium (Crestor -) 40 mg PO HS [facility] Last Admin: 01/07/19 21:59 Dose: 40 mg Warfarin Sodium (Coumadin -) 6 mg PO ONCE ONE Stop: 01/08/19 18:01 - Objective Vital Signs: Vital Signs Temperature 97.9 F 01/08/19 10:00 Pulse Rate 81 01/08/19 10:05 Respiratory Rate 18 01/08/19 10:00 Blood Pressure 105/87 01/08/19 10:00 O2 Sat by Pulse Oximetry (%) 96 01/06/19 09:00 Constitutional: Yes: No Distress, Calm Cardiovascular: Yes: S1, S2 Respiratory: Yes: Regular, CTA Bilaterally Gastrointestinal: Yes: Normal Bowel Sounds, Soft Musculoskeletal: Yes: Other Extremities: Yes: Other Integumentary: Yes: Other Wound/Incision: Yes: Dressing Dry and Intact Neurological: Yes: Alert, Oriented Psychiatric: Yes: Alert, Oriented Labs: CBC, BMP 01/06/19 07:50 01/06/19 07:50 INR, PTT INR 1.97 (0.83-1.09) H 01/08/19 06:40 Assessment/Plan Problem List - Problems (1) Lower extremity ulceration Code(s): L97.909 - NON-PRS CHRONIC ULC UNSP PRT OF UNSP LOW LEG W UNSP SEVERITY Qualifiers: Laterality: unspecified laterality Non-pressure ulcer stage: limited to breakdown of skin Qualified Code(s): L97.901 - Non-pressure chronic ulcer of unspecified part of unspecified lower leg limited to breakdown of skin (2) Vomiting and diarrhea Code(s): R11.10 - VOMITING, UNSPECIFIED; R19.7 - DIARRHEA, UNSPECIFIED plan continue abx wound care will change to oral abx tomorrow and see if the patient tolerates it rest as per the team
--- NOTE | 2019-01-08 13:11 | CONSULT ---
Consult - text type - Consultation Consultation Note: NEUROLOGY CONSULT GREATLY APPRECIATED: Events reviewed and discussed with NICOLASA Pruett. Psychiatry, cardiology and ID consults read and appreciated. This 68 yo RH Northern Irish speaking m woman lives with (w Parkinson's) and children. Has [employer] 8 hours daily for assistance with cooking, cleaning, shopping. PMHX: mitral valve replacement, Afib, HLD, chronic venous stasis of lower extremities (s/p left lower extremity venous stripping), and B/L ulcers. On: digoxin, metoprolol 25 mg qd, rosuvastatin, warfarin 4 mg. Was prescribed Augmentin and Levaquin for ulcers/cellulitis and after taking one dose, was nauseous and vomiting. Brought to hospital by daughter. Seen at request from daughter for "new onset confusion." Now on IV Zoysn. C/O "cramping" in legs from circulation, requiring "blood" through IV. WBC= 6.4; INR= 1.97 BP supine 131/67 supine, 105/87 sitting EPHRAIM: Cor irregular. No bruit. Neck supple. Neg SLR. Ankles bandaged. Varicosities to legs. Neg Ajay's. NEURO: Awake, alert, responsive. [facility] "[facility]. Monday. 2018. TRUMP. Poor reversals. 04/26 recall @ 3 min. + glabella CNII-CNXII: EOM's full. Full kelly. No facial. Gag ok. Motor: No drift or tremor. No cogwheel. Strength normal. Reflexes normal in arms, present KJ's and absent AJ's. Plantars silent. Coordination: No FTN dystaxia. Sensation: Feels vibration in toes. Romberg - Gait: Sl flexed, shuffling. Can walk on heels, toes. Impression: Mild-Mod B/L cerebral Dysfunction (OMS, likely chronic) Worsened by Toxic-Metabolic Encephalopathy (? 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 Thank you very much, Viet Berg MD
[2019-01-08] MEDS ORDERED: WARFARIN NA 3 MG TABLET PO ONE (18:00)
--- NOTE | 2019-01-08 18:05 | PN ---
Progress Note, Physician - Current Medication List Current Medications: Active Medications Acetaminophen (Tylenol -) 650 mg PO Q6H PRN PRN Reason: PAIN SCALE 6-10 Last Admin: 01/07/19 20:01 Dose: 650 mg Digoxin (Lanoxin -) 0.25 mg PO DAILY [facility] Last Admin: 01/08/19 10:05 Dose: 0.25 mg Piperacillin Sod/Tazobactam (Sod 3.375 gm/ Dextrose) 50 mls @ 100 mls/hr IVPB Q8H-IV [facility]; Protocol Last Admin: 01/08/19 17:30 Dose: 100 mls/hr HEPARIN SOD,PORK IN 0.45% NACL (Heparin-1/2ns 25,000 Units/500) 25,000 unit in 500 mls @ 16 mls/hr IVPB TITR [facility]; Protocol Last Titration: 01/08/19 14:41 Dose: 500 units/hr, 10 mls/hr Metoprolol Succinate (Toprol Xl -) 25 mg PO DAILY [facility] Last Admin: 01/08/19 10:05 Dose: 25 mg Rosuvastatin Calcium (Crestor -) 40 mg PO HS [facility] Last Admin: 01/07/19 21:59 Dose: 40 mg Warfarin Sodium (Coumadin -) 5 mg PO DAILY@1800 [facility] - Objective Vital Signs: Vital Signs Temperature 97.9 F 01/08/19 14:00 Pulse Rate 74 01/08/19 14:00 Respiratory Rate 18 01/08/19 14:00 Blood Pressure 117/61 01/08/19 14:00 O2 Sat by Pulse Oximetry (%) 96 01/06/19 09:00 Constitutional: Yes: No Distress HENT: Yes: Atraumatic Neck: Yes: Supple Cardiovascular: Yes: Regular Rate and Rhythm Respiratory: Yes: CTA Bilaterally Gastrointestinal: Yes: Normal Bowel Sounds Extremities: Yes: WNL Edema: No Peripheral Pulses WNL: Yes Neurological: Yes: Alert, Oriented Labs: CBC, BMP 01/06/19 07:50 01/06/19 07:50 INR, PTT INR 1.97 (0.83-1.09) H 01/08/19 06:40 Problem List - Problems (1) Lower extremity ulceration Assessment/Plan: WOUND CARE IV ABX Code(s): L97.909 - NON-PRS CHRONIC ULC UNSP PRT OF UNSP LOW LEG W UNSP SEVERITY Qualifiers: Laterality: unspecified laterality Non-pressure ulcer stage: limited to breakdown of skin Qualified Code(s): L97.901 - Non-pressure chronic ulcer of unspecified part of unspecified lower leg limited to breakdown of skin (2) Vomiting and diarrhea Code(s): R11.10 - VOMITING, UNSPECIFIED; R19.7 - DIARRHEA, UNSPECIFIED (3) Afib Assessment/Plan: on coumadin ...fu inr on iv heparin Code(s): I48.91 - UNSPECIFIED ATRIAL FIBRILLATION (4) Mechanical heart valve present Code(s): Z95.2 - PRESENCE OF PROSTHETIC HEART VALVE
[2019-01-08] MEDS: ROSUVASTATIN CA 20 MG TABLET (FP) PO SCH (22:42)
[2019-01-09] MEDS ORDERED: PIPERACILLIN/TAZOBACTAM 3.375 GM VIAL IVPB ONE ×2 (02:13→09:32)
[2019-01-09] MEDS: PIPERACILLIN/TAZOB 3.375 GM 3.375 GM in DEXTROSE 5%-WATER - 50 ML IVPB SCH ×2 (02:13→09:37)
[2019-01-09] MEDS ORDERED: DEXTROSE 5%-WATER - 50 ML IVPB ONE ×2 (02:14→09:32)
[2019-01-09 07:20] VITALS: BP 127/55; TEMP 97.9
[2019-01-09 07:34] LABS: HEMOGLOBIN 12.9 GM/dL (10.7-15.3); MCHC 33.1 g/dl (32.0-36.0); MEAN CELL VOLUME 93.6 fl (80-96); MEAN PLT VOLUME 8.7 fl (7.5-11.1); PLATELET COUNT 390 K/MM3 (134-434); RBC 4.17 M/mm3 (3.60-5.2); RDW 14.2 % (11.6-15.6); WHITE BLOOD COUNT 6.2 K/mm3 (4.0-10.0)
[2019-01-09 08:15] LABS: INR 3.29 (0.83-1.09); PROTHROMBIN TIME (PATIENT) 39.3 SEC (9.7-13.0)
[2019-01-09] MEDS ORDERED: PT OWN MED DRAWER 7, Y5N ONE (09:31)
[2019-01-09] MEDS: DIGOXIN 0.25 MG TABLET (FP) PO SCH (09:37)
[2019-01-09] MEDS: metoPROLOL SUCCINATE 25 MG TAB.SR.24H (FP) PO SCH (09:37)
[2019-01-09 09:38] VITALS: PULSE 102
--- NOTE | 2019-01-09 10:03 | DS ---
Physical Exam: SUBJECTIVE: Patient seen and examined at the bedside. Asked to see patient by her primary care doctor after patient demanded to leave the hospital now. On exam, patient is sitting in the chair, accompanied by her daughter Jessica. At first patient was very agitated and told me that she was told she would be leaving the hospital today and wants to leave at this very moment. Does not want to stay a minute longer. She denies any chest pain, denies any headaches. She is able to tell me her name, her 's name and her daughters name. States she has been here too long and can take oral antibiotics at home. OBJECTIVE: Patient has facial symmetry, clear speech and no neuro deficits on exam. She appears to be agitated and emotional about her who is on home hospice. Patient has been seen by neurology for toxic metabolic encephalopathy. Daughter who is a nurse is at the bedside and feels that her mother is paranoid and uncooperative and her mother is usually more cooperative. She noted that her mother's behaviour has worsened since her mother's has been on hospice and she also feels that her mother may be having signs of early dementia. At home, she notes that her mother is doing some things out of the ordinary and when she asks her mother about it, her mother gets upset with her. I recommended a head CT but daughter declined stating that patient will not be cooperative. Per daughter, she wants to take her mother home as she feels that the paranoia/ delirium may be related to hospitalization. Discussed with daughter that it may be partly due to insomnia as well as s/e of zosyn which can cause agitation. Advised her that if she decides to take her home, she can bring her back if her mentation does not return to her baseline. She verbalized understanding and agrees. discussed discharge with attending Dr. Copeland and Dr. Barajas and both in agreement to d/c patient. Vital Signs Period Temp Pulse Resp BP Sys/Lopez Pulse Ox Last 24 Hr 97.9 F-98.6 F 66-102 18-20 107-127/52-61 97 PHYSICAL EXAM GENERAL: The patient is awake, alert, and fully oriented, very anxious. otherwise in no acute distress. HEAD: Normal with no signs of trauma. EYES: PERRL, extraocular movements intact, sclera anicteric, conjunctiva clear. ENT: Ears normal, nares patent, oropharynx clear without exudates, moist mucous membranes. NECK: Trachea midline, full range of motion, supple. LUNGS: Breath sounds equal, clear to auscultation bilaterally, no wheezes, no crackles, no accessory muscle use. HEART: irregular, mechanical valve ABDOMEN: Soft, nontender, nondistended, normoactive bowel sounds, no guarding, no rebound, no hepatosplenomegaly, no masses. EXTREMITIES: leg ulcers, wrapped clean dressing. NEUROLOGICAL: Normal speech, gait not observed. PSYCH: agitated LABS Laboratory Results - last 24 hr 01/08/19 01/08/19 01/09/19 12:05 20:20 06:15 WBC 6.2 RBC 4.17 Hgb 12.9 Hct 39.0 MCV 93.6 MCH 31.0 MCHC 33.1 RDW 14.2 Plt Count 390 MPV 8.7 PT with INR INR PTT (Actin FS) 123.3 H 73.8 H Vitamin B12 TSH 01/09/19 01/09/19 01/09/19 06:15 06:15 06:15 WBC RBC Hgb Hct MCV MCH MCHC RDW Plt Count MPV PT with INR 39.30 H INR 3.29 H PTT (Actin FS) 92.6 H Vitamin B12 376 TSH 1.23 HOSPITAL COURSE: Date of Admission:01/02/19 Date of Discharge: 01/09/19 Minutes to complete discharge: 60 Discharge Summary Reason For Visit: VOMITING AND DIARRHEA Current Active Problems Afib (Acute) DVT prophylaxis (Acute) Lower extremity ulceration (Acute) Mechanical heart valve present (Acute) Vomiting and diarrhea (Acute) Condition: Stable - Instructions Diet, Activity, Other Instructions: Mrs Bean: You will be discharged on Augmentin 500mg TWICE per day START TAKING TONIGHT AT 8pm then at 8am and 8pm daily for 7 days total. Also take Levaquin 500mg ONCE per day. You can start this one tomorrow morning. Take a probiotic daily when on the antibiotics to prevent stomach discomfort. Please call Dr. Copeland for a follow up appointment. I have attached a neurology referral as you were interested in a second opinion. Thank you for allowing us to care for you. Referrals: Waleska Copeland MD [Staff Physician] - Minor Bell MD [Staff Physician] - (neurology. plse call for an appt.) Disposition: HOME - Home Medications Comprehensive Discharge Medication List: Ambulatory Orders Digoxin [Lanoxin -] 0.25 mg PO DAILY 01/01/19 Metoprolol Succinate 25 mg PO DAILY 01/01/19 Rosuvastatin [Crestor -] 40 mg PO HS 01/01/19 Warfarin Na [Coumadin -] 4 mg PO DAILY 01/01/19 Amox-Tr/K Cl [Augmentin - 500Mg Tablet] 1 tab PO BID #14 tab 01/09/19 Bacillus Coagulans [Probiotic] 1 each PO DAILY #30 capsule. 01/09/19 levoFLOXacin [Levaquin -] 500 mg PO DAILY #7 tablet 01/09/19 Problem List - Problems (1) Afib Assessment/Plan: on coumadin, follow up with Dr. Roach. Code(s): I48.91 - UNSPECIFIED ATRIAL FIBRILLATION (2) Lower extremity ulceration Assessment/Plan: wound care at wound care center. daughter performs wound care at home. Code(s): L97.909 - NON-PRS CHRONIC ULC UNSP PRT OF UNSP LOW LEG W UNSP SEVERITY Qualifiers: Laterality: unspecified laterality Non-pressure ulcer stage: limited to breakdown of skin Qualified Code(s): L97.901 - Non-pressure chronic ulcer of unspecified part of unspecified lower leg limited to breakdown of skin (3) Mechanical heart valve present Assessment/Plan: follow up with cardiology. INR. 3.26. continue home coumadin advised daugther more frequent checks on INR while patient is on dual antibiotics. Code(s): Z95.2 - PRESENCE OF PROSTHETIC HEART VALVE (4) Vomiting and diarrhea Assessment/Plan: resolved Code(s): R11.10 - VOMITING, UNSPECIFIED; R19.7 - DIARRHEA, UNSPECIFIED This patient is new to me today: Yes Date on this admission: 01/09/19 Emergency Visit: Yes ED Registration Date: 01/02/19 Care time: The patient presented to the Emergency Department on the above date and was hospitalized for further evaluation of their emergent condition. Critical Care patient: No - Discharge Referral Referred to [facility] No
--- NOTE | 2019-01-09 11:32 | PN ---
Progress Note, Physician Chief Complaint: The patient was seen in her way home. 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 Hunt at [facility], proximal LAD dissection s/p emergent PCI of proximal-mid LAD with BMSx1 07/13/2015, pulm hypertension, long-standing atrial fibrillation on warfarin, asthma, venous insufficiency, chronic venous stasis of lower extremities (s/p left lower extremity venous stripping), and bilateral lower extremity ulcers (followed by wound care and ID) admitted with LE ulcers with evidence of cellulitis. Being treated with IV ABx. Her INR was 4.58 and her warfarin was held. INR became subtherapeutic, receiving IV heparin. INR is therapeutic today. Cardiac Tests: Echo06/26/2018: Normal LVsize with PSM and normal systolic function. LVEF =60% . Normal RV. Moderate LAand RAdilatation. Mechanical AVwith normal function. PG = 20mmHg, MG = 9 mmHg. Mild aortic valve regurgitation. Mechanical MVwith normal function. PG = 13 mmHg, MG = 5 mmHg. Eccentric mitral regurgitation, probably mild. Moderateto severetricuspid valve regurgitation. Mild pulmonary hypertension. PASP = 45 mmHg. Regadenoson nuclear stress test01/02/2018:No stress induced chest pain or ECG changes of ischemia. SPECT imagines demonstrated normal myocardial perfusion. Gated study showed normal LV systolic function with a calculated LVEF = 64%. Holter 08/29/2017Atrial fibrillation with an average heart rate of 78 BPM (43-136 BPM). Rare VPCs. No pause. - Objective Vital Signs: Vital Signs Temperature 97.9 F 01/09/19 06:00 Pulse Rate 102 H 01/09/19 09:37 Respiratory Rate 20 01/09/19 06:00 Blood Pressure 127/55 L 01/09/19 06:00 O2 Sat by Pulse Oximetry (%) 97 01/08/19 22:00 Not examined. 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 Hunt at [facility], proximal LAD dissection s/p emergent PCI of proximal-mid LAD with BMSx1 07/13/2015, pulm hypertension, long-standing atrial fibrillation on warfarin, asthma, venous insufficiency, chronic venous stasis of lower extremities (s/p left lower extremity venous stripping), and bilateral lower extremity ulcers (followed by wound care and ID) admitted with LE ulcers with evidence of cellulitis. Being treated with IV ABx. Her INR was 4.58 and her warfarin was held. INR became subtherapeutic, receiving IV heparin. Mechanical AVR/MVR/persistent afib. -on warfarin 4mg daily at home for goal INR 2.5-3.5 -INR is therapeutic, 3.29 today. -Outpatient INR monitor in our office. -Continue digoxin and metoprolol for afib. Outpatient cardiac follow up.
[2019-01-09] MEDS ORDERED: WARFARIN NA 5 MG TABLET (UD) PO SCH (18:00)
== END 2019-01-09 10:54 | disposition home or self-care (01) | DRG 393 ==
LOC: JER 09:11 → JERBED 12:09 → J5S 14:46
PROVIDERS: ADMIT Internal Medicine; ATTEND Internal Medicine
DX: K52.1 Toxic gastroenteritis and colitis (principal); G92 Toxic encephalopathy; L03.116 Cellulitis of left lower limb; L03.115 Cellulitis of right lower limb; L97.901 Non-pressure chronic ulcer of unspecified part of unspecified lower leg limited to breakdown of skin; I83.008 Varicose veins of unspecified lower extremity with ulcer other part of lower leg; R11.2 Nausea with vomiting, unspecified; T36.95XA Adverse effect of unspecified systemic antibiotic, initial encounter; E78.5 Hyperlipidemia, unspecified; J45.909 Unspecified asthma, uncomplicated; I48.91 Unspecified atrial fibrillation; Z95.2 Presence of prosthetic heart valve; Z29.9 Encounter for prophylactic measures, unspecified
CPT/HCPCS: 36415; 80053; 80162; 82150; 82550; 82607; 83690; 84443; 84484; 85025; 85027; 85610; 85730; 86593; 93005; 93010; 99283-25; J1644; J7030